=== PATIENT | male | born 1965 | race Caucasian/White ===

== ENCOUNTER 2024-07-02 11:29 | Outpatient (CLI) | payer OTHER, SELFPAY ==
--- NOTE | ~2024-07-02 | XR_ITS ---
Right Shoulder Technique: AP and scapular Y views were obtained. Clinical History: Pain Findings: No fracture or dislocation is seen. Osseous alignment is anatomic. The glenohumeral and acr omioclavicular joint spaces are preserved. Soft tissues are unremarkable. Impression: Unremarkable right shoulder radiographs. Reviewed, dictated and finalized at [facility]. Impression: Unremarkable right shoulder radiographs.
--- OUTSIDE RECORDS SUMMARY | 2024-07-03 12:49 | XMS_ITS ---
Author Organization [facility] Address [address] [place], [place] [address] Care Team Providers Care Manager Client Name Role Phone MARISELA DARREN Unavailable [phone] Bonifacio Arellano Unavailable Unavailable Allergies Allergen (clinical drug ingredient) Drug/Non Drug Allergy documented on EMR Reaction Allergy Type Onset Date Status POISON DOMINICK EXTRACT poison dominick extract (uncoded) Unknown Allergy 04/15/2022 active REASON FOR VISIT The patient reports that the combination of the oral steroid and PowerStep inserts got rid of 90% of his pain. He does not have pain during the day, but at night time he can cramp up Medications Medication SIG (Take, Route, Frequency, Duration) Notes Start Date End Date Status methylPREDNISolone 4 MG as directed Orally one pack 024 Active Ciclopirox 8 % 1 application Externally to toenails Once a day. for 30 days Remove medication weekly with rubbing alcohol. one bottle, 6.6mL or similar. 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 I educated the patient on icing and stretching, supportive shoegear, and the use of orthotic devices and bracing. Continue PowerStep inserts. 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 I educated the patient on icing and stretching, supportive shoegear, and the use of orthotic devices and bracing. Continue PowerStep inserts. Recommend stretching daily Next Appt Details Follow Up: prn, Reason: Progress Notes * KAVON DAMONDOB:1965 (58 yo M)Acc No.[id number]:12/22/2023 Patient: KAVON HAM Provider: Uri Antonio DPM :1965 A ge:58 Y S ex:Male Date:12/22/2023 Address:[address] [place] [address] Subjective: * Chief Complaints: * 1 . The patient reports that the combination of the oral steroid and PowerStep inserts got rid of 90% of his pain. He does not have pain during the day, but at night time he can cramp up. * HPI: H PI: Follow Up Visit P atient presents for follow-up visit for left foot pain. Patient prescribed oral steroid and given Powerstep inserts. Patient states these both helped greatly, and his pain is 90% gone. , MA: LB. * ROS: G eneral / Constitutional: Patient denies c hills, fever, weakness, night sweats. M usculoskeletal: Patient denies c hildhood foot problems, weakness. P atient complains of j oint pain. P eripheral Vascular: Patient denies u lceration of feet, cold extremities. ? S kin: Patient denies u lcerations, discoloration. P atient complains of n ail changes, fungal nails. N eurologic: Patient denies b alance difficulty, confusion, difficulty speaking, dizziness. * Medical History: H igh blood pressure. * Surgical History: D enies Past Surgical History. * Hospitalization/Major Diagno stic Procedure: D enies Past Hospitalization. * Family History: N on-Contributory. * Social History: M igrated Social History: M igrated Social History: History of tobacco use : , Smoking Status : Never used tobacco. * Medications: T aking Ciclopirox 8 % Solution 1 application Externally to toenails Once a day. Remove medication weekly with rubbing alcohol., stop date 05/29/2024, Notes to Pharmacist: one bottle, 6.6mL or similar., Taking methylPREDNISolone 4 MG Tablet Therapy Pack as directed Orally , Notes to Pharmacist: one pack, Medication List reviewed and reconciled with the patient * Allergies: p oison dominick extract: Allergy - Onset Date 04/15/2022. Objective: * Vitals: S hoe Size: 9, Wt:195lbs, Wt-k.45 kg, Ht: 69 in, Ht-cm: 175.26 cm, BMI:28.79Index, Body Surface Area: 2.07. * Examination: C onstitutional: Constitutional T he patient is awake, alert, well developed, well groomed and well nourished. D ermatologic: Skin findings: S kin is warm, dry, supple with no breaks in the skin. Nail pathology: t he hallux toenail is thick and discolored / yellow. V ascular: Dorsalis pedis pulse: 2 /4, bilateral. Posterior tibial pulse: 2 /4, bilateral. Capillary refill: l ess than 3 seconds. Edema: N o edema, bilateral. N eurologic: Gross sensation G ross sensation is intact to light touch.? M usculoskeletal: Muscle Strength M uscle strength is 5/5 in regards to dorsiflexion, plantarflexion, inversion, and eversion in bilateral lower extremities. Pain on palpation T here is no pain on palpation, There is no pain with range of motion. Assessment: * Assessment: 1. P lantar fasciitis - M72.2 (Primary) 2 . A nterior tibial syndrome, left leg - M76.812 3 . 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 L eft foot pain - M79.672 Plan: * Treatment: * Immunizations: Immunization record has been reviewed and updated. * Follow Up: p rn * Billing Information: * Visit Code: 27700 Office Visit, Est Pt., Level 3. * Procedure Codes: * Sign off status: Completed true * Provider: Uri Antonio DPM Date: Generated for Ronaldo almeida/Kodi/Lin on: 0 07/03/2024 12:49 PM CDT History and Physical Notes * HPI (History of Present Illness) Category Sub-Category Detail Notes Category Not es HPI Follow Up Visit Patient presents for follow-up visit for left foot pain. Patient prescribed oral steroid and given Powerstep inserts. Patient states these both helped greatly, and his pain is 90% gone. , MA: LB Examination Category Sub-Category Detail Notes Category Not es Dermatologic Skin findings: Skin is warm, dr y, supple with no breaks in the skin Nail pathology: the hallux toenail i s thick and discolored / yellow Neurologic Gross sensation Gross sensation is intact to light touch Vascular Dorsalis pedis pulse: 2/4, bilateral Edema: No edema, bilateral Capillary refill: less than 3 seconds Posterior tibial pulse: 2/4, bilateral Musculoskeletal Muscle Strength Muscle strength is 5/5 in regards to dorsiflexion, plantarflexion, inversion, and eversion in bilateral lower extremities Pain on palpation There is no pain on palpation, There is no pain with range of motion Constitutional Constitutional The patient is a wake, alert, well developed, well groomed and well nourished
--- OUTSIDE RECORDS SUMMARY | 2024-07-03 12:49 | XMS_ITS | Patient Health Record ---
Author Organization [facility] Address [address] [place], [place] [id number] Care Team Providers Care Block Inspector Name Role Phone DARREN ANTONIO Unavailable [phone] Bonifacio Arellano Unavailable Unavailable Allergies Allergen (clinical drug ingredient) Drug/Non Drug Allergy documented on EMR Reaction Allergy Type Onset Date Status POISON DOMINICK EXTRACT poison dominick extract (uncoded) Unknown Allergy 04/15/2022 active Reason For Referral No Information Medications Medication SIG (Take, Route, Frequency, Duration) Notes Start Date End Date Status methylPREDNISolone 4 MG as directed Orally one pack 024 Active Immunizations Vaccine Route Administration Date Status Comme nts Influenza, high dose seasonal Unknown 02/07/2022 Admini stered Influenza, high dose seasonal Unknown 12/01/2023 Refuse d Pneumococcal conjugate PCV 13 Unknown 02/07/2022 Admini stered Pneumococcal conjugate PCV 13 Unknown 12/01/2023 Refuse d Vital Signs Height-cm 175.26 cm 12/22/2023 Weight-kg 88.45 kg 12/22/2023 Height 69 in 12/22/2023 Weight 195 lbs 12/22/2023 BMI 28.79 kg/m2 12/22/2023 Encounters Encounter Location Date Provider Diagnosis [facility] [address] [place], [place] [id number] 12/01/2023 DARREN ANTONIO Anterior tibial syndrome, 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 ; Tinea unguium B35.1 ; Other congenital malformations of lower limb(s), 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 and Left foot pain M79.672 [facility] [address] [place], [place] [id number] 12/22/2023 DARREN ANTONIO Anterior tibial syndrome, 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 I educated the patient on icing and stretching, supportive shoegear, and the use of orthotic devices and bracing. Shoe Recommendation: Advised patient on appropriate shoe gear for protection, healing and good foot health. PowerStep Inserts: The patient was dispensed and fitted with over the counter arch supports. The patient was educated on their use and effect. All questions were answered. 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
--- OUTSIDE RECORDS SUMMARY | 2024-07-03 12:49 | XMS_ITS | Encounter Summary ---
Author Organization [facility] Address [address] [place] [address] Care Team Providers Care Material Damage Appraiser Name Role Phone Unavailable Primary Care Provider Unavailabl e Encounter Details Date Type Department Care Team (Late st Contact Info) Description 10/03/2021 Lab Requisition [facility] [address] [place] [address] Abel Dao MD [address] [place] [address] Social History Tobacco Use Types Packs/Day Years Used Date Smoking Tobacco: Never Assessed Sex and Gender Information Value Date Recorded Sex Assigned at Not on file Legal Sex Male 5:59 AM HOROLOGIST Gender Identity Not on file Sexual Orientation Not on file documented as of this encounter Plan of Treatment Not on file documented as of this encounter Procedures Procedure Name Priority Date/Time Associated Diagnosis Comments DERMATOPATHOLOGY Routine 10/02/2021 3:33 AM CDT documented in this encounter Results * DERMATOPATHOLOGY (10/02/2021 3:33 AM CDT) Case Report Dermatopathology Report Case: [id number] Authorizing Provider: Abel Dao MD Collected: 10/02/2021 03:33 AM Ordering Location: [facility] Received: 10/03/2021 01:46 PM Pathologist: Nadia Strickland MD Specimens: A) - Skin, right mid pretibia B) - Skin, right lateral back 4:01 PM CDT DERMATOPATHOLOGY LABORATORY Final Diagnosis Specimen A. SKIN, right mid pretibia: BENIGN VERRUCOUS KERATOSIS, INFLAMED (L82.1) Specimen B. SKIN, right lateral back: NEUROFIBROMA (D36.10) 2 4:01 PM T DERMATOPATHOLOGY LABORATORY Clinical History A-B: R/O SCC 4:01 PM T DERMATOPATHOLOGY LABORATORY Gross Description Specimen A: Received is one formalin filled container labeled with the patient's name and designated right mid pretibia. The specimen consists of a shave biopsy measuring [id number]. Jar 0. Specimen B: Received is one formalin filled container labeled with the patient's name and designated right lateral back. The specimen consists of a shave biopsy measuring [id number] and another piece of tissue measuring [id number]. Jar 0. 4:01 PM T DERMATOPATHOLOGY LABORATORY Microscopic Description Specimen A. SKIN, right mid pretibia: Sections show hyperkeratosis, papillomatosis, hypergranulosis, and acanthosis. Inflammatory cells are present within the dermis. These histological findings can be seen in a verruca vulgaris or a seborrheic keratosis. Specimen B. SKIN, right lateral back: Sections show a proliferation of spindled and S-shaped cells within the dermis. The stromal collagen is delicate and pale. 2 4:01 PM [facility] DERMATOPATHOLOGY LABORATORY Disclaimer An external and internal positive and negative controls are appropriate for the histochemical, immunohistochemical and immunofluorescence stain(s) in this case (if any), except where stated explicitly. The performance characteristics of the stain(s) cited in this report were developed and its performance characteristic determined by the Dermatopathology Laboratory at [facility], directed by Dr. Francisco Mitchell. These tests need not be, and therefore are not, approved by the [place] Food and Drug Administration. The tests are used for clinical purposes. Billing Codes Specimen Charges Stain Charges 66190 36130 1 1 2 4:01 PM CDT DERMATOPATHOLOGY LABORATORY Embedded Images 2 4:01 PM CDT DERMATOPATHOLOGY LABORATORY Pathology/Cytology TISSUE SPECIMEN FROM SKIN / Unknown 10/02/2021 3:33 AM CDT 10/03/2021 1:46 PM CDT Miscellaneous samples (specimen) TISSUE SPECIMEN FROM SKIN / Unknown 10/02/2021 3:33 AM CDT 10/03/2021 1:46 PM CDT Abel Dao MD LAB - PATHOLOGY/CYTOLOGY ORD ERABLES Final Result DERMATOPATHOLOGY LABORATORY [facility] - Department of Dermatology [facility] [address] [place] [address], [address] [phone] documented in this encounter Visit Diagnoses Not on filedocumented in this encounter
--- OUTSIDE RECORDS SUMMARY | 2024-07-03 12:49 | XMS_ITS | Data Portability ---
Author Organization [facility] [employer], Main Office Address [address] [place] [address] Assessment No assessment recorded. Plan of Treatment Reminders Order Date Submit Date Provider Last Modified By Organization Details Last Modified Time Details Appointments None recorded. Lab lipid panel, serum 2023 024 [facility], [address] [place], [address], 4 16:48:21 CMP, serum or plasma 2023 024 [facility], [address] [place], [address], 4 16:48:22 PSA, serum or plasma 2023 024 [facility], [address] [place], [address], 4 16:48:23 testosteron e, free + total, serum 2023 024 [facility], [address] [place], [address], 4 16:48:23 lipid panel, serum [email or web address] [place] [address] Outpatient Lab, [address] [place], [address], 4 13:11:24 CMP, serum or plasma [email or web address] [place] [address] Outpatient Lab, [address] [place], [address], 4 13:11:24 testosteron e, free + total, serum 2022 023 [email or web address] [facility] Outpatient Lab, [address] [place], [address], 4 13:11:24 lipid panel, serum 2022 023 [facility], [address] [place], [address], 3 07:09:49 CMP, serum or plasma 2022 023 [facility], [address] [place], [address], 3 07:09:49 PSA, serum or plasma 2022 023 [facility], [address] [place], [address], 3 07:09:51 CBC w/ auto diff 2022 023 [facility], [address] [place], [address], 3 07:09:50 Referral None recorded. Procedures None recorded. Surgeries None recorded. Imaging None recorded. Medication Orders cephalexin 500 mg capsule 2023 024 [id number], [id number] , [place], [address], 4 16:44:45 Patient TargetsNo targets recorded. Patient Instructions Encounter Date Encounter Id Patient Instructions Last Modified By Organization Details Last Modified Time 08/28/2022 [id number] Follow-up for hypertension -hyperlipidemia -recurrent pancreatitis clinically doing well at this time. No interval complaints of any abdominal pain or other signs or symptoms of recurrent pancreatitis. Will check a CBC, CMP, lipid and PSA. Continue on current Rx follow-up in six months. [email or web address] Not available 08/28/2022 16:58:22 02/26/2023 [id number] Hypertension -hyperlipidemia -history of chronic pancreatitis -testicular hypofunction obesity class one. Check blood work in the form hemoglobin A1c, microalbumin, lipid panel. Continue on current medications follow-up in six months. Portions of the record may have been created with voice recognition software. Occasional wrong-word or s ound-a-like substitutions may have occurred due to the inherent limitations of voice recognition software. Read the chart carefully and recognize, using context, where substitutions have occurred. [email or web address] Not available 02/26/2023 16:55:19 08/27/2023 [id number] Follow-up hypertension, hyperlipidemia, chronic pancreatitis and testicular hypofunction all clinically stable. Will check a lipid panel, CMP, PSA and testosterone. Continue on current Rx follow-up in six months Next Appointment: 6 Months Approximate Date: 02/23/2024 Portions of the record may have been created with voice recognition software. Occasional wrong-word or s ound-a-like substitutions may have occurred due to the inherent limitations of voice recognition software. Read the chart carefully and recognize, using context, where substitutions have occurred. Not available 08/27/2023 16:57:10 Reason for Referral None Reported. Results Created Date Observation Date Name Description Value Unit Range Abnormal Flag Note LastModifiedBy Organization Detail LastModifiedTime 02/07/20 22 02/06/2022 COVID /FLU/ RSV PCR PANEL sars-cov-2 RNA(covid19) ,RT-PCR positi ve abnormal Not Available [facility] (Lab) [address] [place], [address], 02/06/2022 13:20:49 02/07/20 22 02/06/2022 COVID /FLU/ RSV PCR PANEL influenza A RNA, RT-PCR positi ve abnormal Not Available [facility] (Lab) [address] [place], [address], 02/06/2022 13:20:49 02/07/20 22 02/06/2022 COVID /FLU/ RSV PCR PANEL influenza B RNA, RT-PCR negati ve Not Available [facility] (Lab) [address] [place], [address], 02/06/2022 13:20:49 02/07/20 22 02/06/2022 COVID /FLU/ RSV PCR PANEL RSV/resp.syn ctial virus,RT-PCR negati ve abnormal Not Available [facility] (Lab) [address], [place], [address], 02/06/2022 13:20:49 03/16/19 23 03/17/2022 COMPR EHENS AUDREY METAB OLIC PANEL glucose 109 mg/dL 65-99 high Fasti ng refer ence inter ryanne For someo ne witho ut known diabe jayro, a gluco se value betwe en 100 and 125 mg/dL is consi stent with predi abete s and shoul d be confi rmed with a follo w-up test. Not Available [address], [address], 03/17/2022 08:23:24 03/16/19 23 03/17/2022 COMPR EHENS AUDREY METAB OLIC PANEL urea nitrogen (BUN) 15 mg/dL 7-25 normal Not Available [address], [address], 03/17/2022 08:23:24 03/16/19 23 03/17/2022 COMPR EHENS AUDREY METAB OLIC PANEL creatinine 0.90 mg/dL 0.70-1 .30 normal Not Available [facility] [email or web address] Diagnostics [address], [address], 03/17/2022 08:23:24 03/16/19 23 03/17/2022 COMPR EHENS AUDREY METAB OLIC PANEL eGFR 100 mL/mi n/1.7 3m2 > or = 60 normal The eGFR is based on the CKD-E PI 2020 equat ion. To calcu late the new eGFR from a previ ous Creat inine or Cysta tin C resul t, go to https ://zaire chi.parvez villegas/argentina lara s/ kdoqi /gfr% 5Fcal culat or Not Available [address] [address] [place], [address], 03/17/2022 08:23:24 03/16/19 23 03/17/2022 COMPR EHENS AUDREY METAB OLIC PANEL BUN/creatini ne ratio not applic able (calc ) 6-22 Not Available [address], [address], 03/17/2022 08:23:24 03/16/19 23 03/17/2022 COMPR EHENS AUDREY METAB OLIC PANEL sodium 139 mmol/ L 135-14 6 normal Not Available [address], [address], 03/17/2022 08:23:24 03/16/19 23 03/17/2022 COMPR EHENS AUDREY METAB OLIC PANEL potassium 4.3 mmol/ L 3.5-5. 3 normal Not Available [address], [address], 03/17/2022 08:23:24 03/16/19 23 03/17/2022 COMPR EHENS AUDREY METAB OLIC PANEL chloride 106 mmol/ L 98-110 normal Not Available [address], [address], 03/17/2022 08:23:24 03/16/19 23 03/17/2022 COMPR EHENS AUDREY METAB OLIC PANEL carbon dioxide 26 mmol/ L 20-32 normal Not Available [facility] [address], [address], 03/17/2022 08:23:24 03/16/19 23 03/17/2022 COMPR EHENS AUDREY METAB OLIC PANEL calcium 9.5 mg/dL 8.6-10 .3 normal Not Available [address], [address], 03/17/2022 08:23:24 03/16/19 23 03/17/2022 COMPR EHENS AUDREY METAB OLIC PANEL protein, total 6.8 g/dL 6.1-8. 1 normal Not Available [address], [address], 03/17/2022 08:23:24 03/16/19 23 03/17/2022 COMPR EHENS AUDREY METAB OLIC PANEL albumin 4.6 g/dL 3.6-5. 1 normal Not Available [address], [address], 03/17/2022 08:23:24 03/16/19 23 03/17/2022 COMPR EHENS AUDREY METAB OLIC PANEL globulin 2.2 g/dL_ (calc ) 1.9-3. 7 normal Not Available [address], [address], 03/17/2022 08:23:24 03/16/19 23 03/17/2022 COMPR EHENS AUDREY METAB OLIC PANEL albumin/glob ulin ratio 2.1 (calc ) 1.0-2. 5 normal Not Available [address], [address], 03/17/2022 08:23:24 03/16/19 23 03/17/2022 COMPR EHENS AUDREY METAB OLIC PANEL bilirubin, total 0.5 mg/dL 0.2-1. 2 normal Not Available [address], [address], 03/17/2022 08:23:24 03/16/19 23 03/17/2022 COMPR EHENS AUDREY METAB OLIC PANEL alkaline phosphatase 59 U/L 35-144 normal Not Available [address], [address], 03/17/2022 08:23:24 03/16/19 23 03/17/2022 COMPR EHENS AUDREY METAB OLIC PANEL AST 22 U/L 10-35 normal Not Available [address] [address] [place], [address], 03/17/2022 08:23:24 03/16/19 23 03/17/2022 COMPR EHENS AUDREY METAB OLIC PANEL ALT 24 U/L 9-46 normal Not Available [address], [address], 03/17/2022 08:23:24 03/16/19 23 03/17/2022 LIPID PANEL , STAND TIFFANY triglyceride s 59 mg/dL <150 normal Not Available [address], [address], 03/17/2022 08:23:23 03/16/19 23 03/17/2022 LIPID PANEL , STAND TIFFANY cholesterol, total 113 mg/dL <200 normal Not Available [address], [address], 03/17/2022 08:23:23 03/16/19 23 03/17/2022 LIPID PANEL , STAND TIFFANY HDL cholesterol 49 mg/dL > or = 40 normal Not Available [address], [address], 03/17/2022 08:23:23 03/16/19 23 03/17/2022 LIPID PANEL , STAND TIFFANY LDL-choleste rol 50 mg/dL _(zo c) normal Refer ence range : <100 Sherri able range <100 mg/dL for prima ry preve ntion ; <70 mg/dL for patie nts with CHD or diabe tic patie nts with > or = 2 CHD risk facto rs. LDL-C is now calcu lated using the Maritza n-Hop kins calcu mj n, which is a valid ated novel metho d jensen sullivan r accur acy than the Fried ayaz equat ion in the estim ation of LDL-C . Maritza holloway SS et al. DANILO. 2013; 310(1 8): 2061- 2068 (http ://ed ucati on.Krissy boss [employer]. com/f aq/FA Q164) Not Available [address] [address] , [place], [address], 03/17/2022 08:23:23 03/16/19 23 03/17/2022 LIPID PANEL , STAND TIFFANY chol/HDLC ratio 2.3 (calc ) <5.0 normal Not Available [address], [place], [address], 03/17/2022 08:23:23 03/16/19 23 03/17/2022 LIPID PANEL , STAND TIFFANY non HDL cholesterol 64 mg/dL _(zo c) <130 normal For patie nts with diabe jayro plus 1 major ASCVD risk facto r, treat ing to a non-H DL-C goal of <100 mg/dL (LDL- C of <70 mg/dL ) is consi moses a souleymane nolasco c optio n. Not Available [address], [place], [address], 03/17/2022 08:23:23 09/05/19 23 09/05/2022 LIPID PANEL , STAND TIFFANY cholesterol, total 130 mg/dL <200 normal Not Available [address], [place], [address], 09/05/2022 07:09:48 09/05/19 23 09/05/2022 LIPID PANEL , STAND TIFFANY HDL cholesterol 49 mg/dL > or = 40 normal Not Available [address] [address] [place], [address], 09/05/2022 07:09:48 09/05/19 23 09/05/2022 LIPID PANEL , STAND TIFFANY triglyceride s 146 mg/dL <150 normal Not Available [address] [address] [place], [address], 09/05/2022 07:09:48 09/05/19 09/05/2022 LIPID PANEL , STAND TIFFANY LDL-choleste rol 58 mg/dL _(zo c) normal Refer ence range : <100 Sherri able range <100 mg/dL for prima ry preve ntion ; <70 mg/dL for patie nts with CHD or diabe tic patie nts with > or = 2 CHD risk facto rs. LDL-C is now calcu lated using the Maritza n-Hop kins calcu mj n, which is a valid ated novel metho d provi ding laurie r accur acy than the Fried ayaz equat ion in the estim ation of LDL-C . Maritza n SS et al. DANILO. 2013; 310(1 9): 2061- 2068 (http ://ed ucati onBrightTALK. [employer]/f aq/FA Q164) Not Available [facility] [address] [address] [address], [place], [address], 09/05/2022 07:09:48 09/05/1909/05/2022 LIPID PANEL , STAND TIFFANY chol/HDLC ratio 2.7 (calc ) <5.0 normal Not Available [facility] [address] [address] [address] , [place], [address], 09/05/2022 07:09:48 09/05/1909/05/2022 LIPID PANEL , STAND TIFFANY non HDL cholesterol 81 mg/dL _(zo c) <130 normal For patie nts with diabe jayro plus 1 major ASCVD risk facto r, treat ing to a non-H DL-C goal of <100 mg/dL (LDL- C of <70 mg/dL ) is consi dered a thera peuti c optio n. Not Available [facility] [address] [address], [place], [address], 09/05/2022 07:09:48 09/05/1909/05/2022 COMPR EHENS AUDREY METAB OLIC PANEL glucose 99 mg/dL 65-99 normal Fasti ng refer ence inter ryanne Not Available [facility] [address] [address] [place], [address], 09/05/2022 07:09:49 09/05/19 23 09/05/2022 COMPR EHENS AUDREY METAB OLIC PANEL urea nitrogen (BUN) 14 mg/dL 7-25 normal Not Available [address], [address], 09/05/2022 07:09:49 09/05/19 23 09/05/2022 COMPR EHENS AUDREY METAB OLIC PANEL creatinine 0.81 mg/dL 0.70-1 .30 normal Not Available [address], [address], 09/05/2022 07:09:49 09/05/19 23 09/05/2022 COMPR EHENS AUDREY METAB OLIC PANEL eGFR 103 mL/mi n/1.7 3m2 > or = 60 normal The eGFR is based on the CKD-E PI 2020 equat ion. To calcu late the new eGFR from a previ ous Creat inine or Cysta tin C resul t, go to https ://zaire guerrero.yuly chi.o nelly/argentina lara s/ kdoqi /gfr% 5Fcal culat or Not Available [address], [address], 09/05/2022 07:09:49 09/05/19 23 09/05/2022 COMPR EHENS AUDREY METAB OLIC PANEL BUN/creatini ne ratio NOT APPLIC ABLE (calc ) 6-22 Not Available [address], [address], 09/05/2022 07:09:49 09/05/19 23 09/05/2022 COMPR EHENS AUDREY METAB OLIC PANEL sodium 138 mmol/ L 135-14 6 normal Not Available [address], [address], 09/05/2022 07:09:49 09/05/19 23 09/05/2022 COMPR EHENS AUDREY METAB OLIC PANEL potassium 4.1 mmol/ L 3.5-5. 3 normal Not Available [address], [address], 09/05/2022 07:09:49 09/05/19 23 09/05/2022 COMPR EHENS AUDREY METAB OLIC PANEL chloride 104 mmol/ L 98-110 normal Not Available [address], [address], 09/05/2022 07:09:49 09/05/19 23 09/05/2022 COMPR EHENS AUDREY METAB OLIC PANEL carbon dioxide 23 mmol/ L 20-32 normal Not Available [address], [address], 09/05/2022 07:09:49 09/05/19 23 09/05/2022 COMPR EHENS AUDREY METAB OLIC PANEL calcium 9.4 mg/dL 8.6-10 .3 normal Not Available [address], [address], 09/05/2022 07:09:49 09/05/1909/05/2022 COMPR EHENS AUDREY METAB OLIC PANEL protein, total 6.6 g/dL 6.1-8. 1 normal Not Available [address], [address], 09/05/2022 07:09:49 09/05/19 23 09/05/2022 COMPR EHENS AUDREY METAB OLIC PANEL albumin 4.4 g/dL 3.6-5. 1 normal Not Available [address], [address], 09/05/2022 07:09:49 09/05/19 23 09/05/2022 COMPR EHENS AUDREY METAB OLIC PANEL globulin 2.2 g/dL_ (calc ) 1.9-3. 7 normal Not Available [address], [address], 09/05/2022 07:09:49 09/05/19 23 09/05/2022 COMPR EHENS AUDREY METAB OLIC PANEL albumin/glob ulin ratio 2.0 (calc ) 1.0-2. 5 normal Not Available [address], [address], 09/05/2022 07:09:49 09/05/19 23 09/05/2022 COMPR EHENS AUDREY METAB OLIC PANEL bilirubin, total 0.6 mg/dL 0.2-1. 2 normal Not Available [address], [address], 09/05/2022 07:09:49 09/05/19 23 09/05/2022 COMPR EHENS AUDREY METAB OLIC PANEL alkaline phosphatase 58 U/L 35-144 normal Not Available [address], [address], 09/05/2022 07:09:49 09/05/19 23 09/05/2022 COMPR EHENS AUDREY METAB OLIC PANEL AST 24 U/L 10-35 normal Not Available [address], [address], 09/05/2022 07:09:49 09/05/19 23 09/05/2022 COMPR EHENS AUDREY METAB OLIC PANEL ALT 28 U/L 9-46 normal Not Available [address], [address], 09/05/2022 07:09:49 09/05/19 23 09/05/2022 CBC (INCL UDES DIFF/ PLT) white blood cell count 6.5 thous and/u L 3.8-10 .8 normal Not Available [address], [address], 09/05/2022 07:09:50 09/05/19 23 09/05/2022 CBC (INCL UDES DIFF/ PLT) red blood cell count 5.32 vipul on/uL 4.20-5 .80 normal Not Available [address], [address], 09/05/2022 07:09:50 09/05/19 23 09/05/2022 CBC (INCL UDES DIFF/ PLT) hemoglobin 15.3 g/dL 13.2-1 7.1 normal Not Available [address], [address], 09/05/2022 07:09:50 09/05/19 23 09/05/2022 CBC (INCL UDES DIFF/ PLT) hematocrit 46.2 % 38.5-5 0.0 normal Not Available [address], [address], 09/05/2022 07:09:50 09/05/19 23 09/05/2022 CBC (INCL UDES DIFF/ PLT) MCV 86.8 fL 80.0-1 00.0 normal Not Available [address], [address], 09/05/2022 07:09:50 09/05/19 23 09/05/2022 CBC (INCL UDES DIFF/ PLT) MCH 28.8 pg 27.0-3 3.0 normal Not Available [address], [address], 09/05/2022 07:09:50 09/05/19 23 09/05/2022 CBC (INCL UDES DIFF/ PLT) MCHC 33.1 g/dL 32.0-3 6.0 normal Not Available [address], [address], 09/05/2022 07:09:50 09/05/19 23 09/05/2022 CBC (INCL UDES DIFF/ PLT) RDW 13.7 % 11.0-1 5.0 normal Not Available [address], [address], 09/05/2022 07:09:50 09/05/19 23 09/05/2022 CBC (INCL UDES DIFF/ PLT) platelet count 231 thous and/u L 140-40 0 normal Not Available [address], [address], 09/05/2022 07:09:50 09/05/19 23 09/05/2022 CBC (INCL UDES DIFF/ PLT) MPV 10.5 fL 7.5-12 .5 normal Not Available [address], [address], 09/05/2022 07:09:50 09/05/19 23 09/05/2022 CBC (INCL UDES DIFF/ PLT) absolute neutrophils 3426 cells /uL 1500-7 800 normal Not Available [address], [address], 09/05/2022 07:09:50 09/05/19 23 09/05/2022 CBC (INCL UDES DIFF/ PLT) absolute lymphocytes 2295 cells /uL 850-39 00 normal Not Available [address], [address], 09/05/2022 07:09:50 09/05/19 23 09/05/2022 CBC (INCL UDES DIFF/ PLT) absolute monocytes 611 cells /uL 200-95 0 normal Not Available [address], [address], 09/05/2022 07:09:50 09/05/19 23 09/05/2022 CBC (INCL UDES DIFF/ PLT) absolute eosinophils 137 cells /uL 15-500 normal Not Available [address], [address], 09/05/2022 07:09:50 09/05/19 23 09/05/2022 CBC (INCL UDES DIFF/ PLT) absolute basophils 33 cells /uL 0-200 normal Not Available [address], [address], 09/05/2022 07:09:50 09/05/19 23 09/05/2022 CBC (INCL UDES DIFF/ PLT) neutrophils 52.7 % normal Not Available [address], [address], 09/05/2022 07:09:50 09/05/19 23 09/05/2022 CBC (INCL UDES DIFF/ PLT) lymphocytes 35.3 % normal Not Available [facility] [email or web address] Diagnostics [address], [address], 09/05/2022 07:09:50 09/05/19 23 09/05/2022 CBC (INCL UDES DIFF/ PLT) monocytes 9.4 % normal Not Available [address], [address], 09/05/2022 07:09:50 09/05/19 23 09/05/2022 CBC (INCL UDES DIFF/ PLT) eosinophils 2.1 % normal Not Available [address], [address], 09/05/2022 07:09:50 09/05/19 23 09/05/2022 CBC (INCL UDES DIFF/ PLT) basophils 0.5 % normal Not Available [address], [address], 09/05/2022 07:09:50 09/05/19 23 09/05/2022 PSA, TOTAL PSA, total 1.11 NG/mL < or = 4.00 normal The total PSA value from this assay syste m is stand ardiz ed again st the WHO stand tiffany. The test resul t will be appro ximat vinicio 20% lower when gerson red to the equim olar- stand ardiz ed total PSA ([place] man Coult er). Gerson rison of seria l PSA resul ts shoul d be inter prete d with this fact in mind. This test was perfo rmed using the Sieme ns chemi lumin escen t metho d. Value s obtai marya from diffe rent assay metho ds canno t be used inter mariano eably . PSA level s, regar dless of value , shoul d not be inter prete d as absol emmonak evide nce of the prese nce or absen ce of disea se. Not Available [facility] [address] [address] [place], [address], 09/05/2022 07:09:51 03/18/19 24 03/22/2023 LIPID PANEL , STAND TIFFANY cholesterol, total 146 mg/dL <200 normal Not Available [facility] [address] [address] [place], [address], 03/22/2023 10:55:17 03/18/19 24 03/22/2023 LIPID PANEL , STAND TIFFANY HDL cholesterol 51 mg/dL > or = 40 normal Not Available [facility] [address] [address] [place], [address], 03/22/2023 10:55:17 03/18/19 24 03/22/2023 LIPID PANEL , STAND TIFFANY triglyceride s 141 mg/dL <150 normal Not Available [facility] [address] [address] [place], [address], 03/22/2023 10:55:17 03/18/19 24 03/22/2023 LIPID PANEL , STAND TIFFANY LDL-choleste rol 73 mg/dL _(zo c) normal Refer ence range : <100 Sherri able range <100 mg/dL for prima ry preve ntion ; <70 mg/dL for patie nts with CHD or diabe tic patie nts with > or = 2 CHD risk facto rs. LDL-C is now calcu lated using the [facility]-Hop kins calcu mj n, which is a valid ated novel metho d provi ding laurie r accur acy than the Fried ayaz equat ion in the estim ation of LDL-C . Maritza n SS et al. DNAILO. 2013; 310(1 9): 2061- 2068 (http ://ed ucati on.[employer] Justin [employer]. com/f aq/FA Q164) Not Available [address] [address] [place], [address], 03/22/2023 10:55:17 03/18/19 24 03/22/2023 LIPID PANEL , STAND TIFFANY chol/HDLC ratio 2.9 (calc ) <5.0 normal Not Available [address] [address] [facility] [place], [address], 03/22/2023 10:55:17 03/18/19 24 03/22/2023 LIPID PANEL , STAND TIFFANY non HDL cholesterol 95 mg/dL _(zo c) <130 normal For patie nts with diabe jayro plus 1 major ASCVD risk facto r, treat ing to a non-H DL-C goal of <100 mg/dL (LDL- C of <70 mg/dL ) is consi dered a thera peuti c optio n. Not Available [address], [address], 03/22/2023 10:55:17 03/18/19 24 03/22/2023 COMPR EHENS AUDREY METAB OLIC PANEL glucose 108 mg/dL 65-99 high Fasti ng refer ence inter ryanne For someo ne witho ut known diabe jayro, a gluco se value betwe en 100 and 125 mg/dL is consi stent with predi abete s and shoul d be confi rmed with a follo w-up test. Not Available [address] [address] [place], [address], 03/22/2023 10:55:18 03/18/19 24 03/22/2023 COMPR EHENS AUDREY METAB OLIC PANEL urea nitrogen (BUN) 20 mg/dL 7-25 normal Not Available [facility] [address] [place], [address], 03/22/2023 10:55:18 03/18/19 24 03/22/2023 COMPR EHENS AUDREY METAB OLIC PANEL creatinine 1.10 mg/dL 0.70-1 .30 normal Not Available [address] [address] [place], [address], 03/22/2023 10:55:18 03/18/19 24 03/22/2023 COMPR EHENS AUDREY METAB OLIC PANEL eGFR 78 mL/mi n/1.7 3m2 > or = 60 normal Not Available [address] [address] [place], [address], 03/22/2023 10:55:18 03/18/19 24 03/22/2023 COMPR EHENS AUDREY METAB OLIC PANEL BUN/creatini ne ratio SEE NOTE: (calc ) 6-22 Not Repor myriam: BUN and Creat inine are withi n refer ence range . Not Available [address] [address] [place], [address], 03/22/2023 10:55:18 03/18/19 24 03/22/2023 COMPR EHENS AUDREY METAB OLIC PANEL sodium 140 mmol/ L 135-14 6 normal Not Available [address] [address] [place], [address], 03/22/2023 10:55:18 03/18/19 24 03/22/2023 COMPR EHENS AUDREY METAB OLIC PANEL potassium 4.0 mmol/ L 3.5-5. 3 normal Not Available [facility] [address] [address] [place], [address], 03/22/2023 10:55:18 03/18/19 24 03/22/2023 COMPR EHENS AUDREY METAB OLIC PANEL chloride 106 mmol/ L 98-110 normal Not Available [facility] [address] [address] [place], [address], 03/22/2023 10:55:18 03/18/19 24 03/22/2023 COMPR EHENS AUDREY METAB OLIC PANEL carbon dioxide 26 mmol/ L 20-32 normal Not Available [address], [address], 03/22/2023 10:55:18 03/18/19 24 03/22/2023 COMPR EHENS AUDREY METAB OLIC PANEL calcium 9.7 mg/dL 8.6-10 .3 normal Not Available [address], [address], 03/22/2023 10:55:18 03/18/19 24 03/22/2023 COMPR EHENS AUDREY METAB OLIC PANEL protein, total 6.8 g/dL 6.1-8. 1 normal Not Available [address], [address], 03/22/2023 10:55:18 03/18/19 24 03/22/2023 COMPR EHENS AUDREY METAB OLIC PANEL albumin 4.6 g/dL 3.6-5. 1 normal Not Available [address], [address], 03/22/2023 10:55:18 03/18/19 24 03/22/2023 COMPR EHENS AUDREY METAB OLIC PANEL globulin 2.2 g/dL_ (calc ) 1.9-3. 7 normal Not Available [address], [address], 03/22/2023 10:55:18 03/18/19 24 03/22/2023 COMPR EHENS AUDREY METAB OLIC PANEL albumin/glob ulin ratio 2.1 (calc ) 1.0-2. 5 normal Not Available [address], [address], 03/22/2023 10:55:18 03/18/19 24 03/22/2023 COMPR EHENS AUDREY METAB OLIC PANEL bilirubin, total 0.5 mg/dL 0.2-1. 2 normal Not Available [address] [address] [place], [address], 03/22/2023 10:55:18 03/18/19 24 03/22/2023 COMPR EHENS AUDREY METAB OLIC PANEL alkaline phosphatase 80 U/L 35-144 normal Not Available [facility] [address] [address] [place], [address], 03/22/2023 10:55:18 03/18/19 24 03/22/2023 COMPR EHENS AUDREY METAB OLIC PANEL AST 23 U/L 10-35 normal Not Available [address] [address] [place], [address], 03/22/2023 10:55:18 03/18/19 24 03/22/2023 COMPR EHENS AUDREY METAB OLIC PANEL ALT 24 U/L 9-46 normal Not Available [address] [address] [place], [address], 03/22/2023 10:55:18 03/18/19 24 03/22/2023 TESTO STERO NE, FREE (DIAL YSIS) AND TOTAL ,MS testosterone , total, MS 474 NG/dL 250-11 00 For addit ional infor loi barney e refer to https ://ed [email or web address] on.qu justin [email or web address] com/f aq/FA Q165 (This link is being provi ded for infor matsoraya nal/e ducat ional purpo ses only. ) (Note ) This test was devel oped and its elisa tical perfo rmanc e karin cteri stics have been deter mined by [employer]. It has not been clear ed or appro rosita by the FDA. This assay has been valid ated pursu ant to the CLIA regul ation s and is used for clini zo purpo ses. Not Available [facility] [address] [address] [place], [address], 03/22/2023 10:55:19 03/18/19 24 03/22/2023 TESTO STERO NE, FREE (DIAL YSIS) AND TOTAL ,MS testosterone , free 58.8 pg/mL 35.0-1 55.0 (Note ) This test was devel oped and its elisa tical perfo rmanc e karin cteri stics have been deter mined by [employer]. It has not been clear ed or appro rosita by the FDA. This assay has been valid ated pursu ant to the CLIA regul ation s and is used for clini zo purpo ses. MDF med fusio n [address] [facility] [address] [place] [address] [phone] Curt triplett MD Not Available [facility] [address] [place] [address] [place], [address], 03/22/2023 10:55:19 08/30/19 24 09/02/2023 LIPID PANEL , STAND TIFFANY cholesterol, total 122 mg/dL <200 normal Not Available [facility] [address] [place] [address] [place], [address], 09/02/2023 16:48:21 08/30/19 24 09/02/2023 LIPID PANEL , STAND TIFFANY HDL cholesterol 56 mg/dL > or = 40 normal Not Available [facility] [address] [place] [address] [place], [address], 09/02/2023 16:48:21 08/30/19 24 09/02/2023 LIPID PANEL , STAND TIFFANY triglyceride s 62 mg/dL <150 normal Not Available [facility] [address] [place] [address] [place], [address], 09/02/2023 16:48:21 08/30/19 24 09/02/2023 LIPID PANEL , STAND TIFFANY LDL-choleste rol 52 mg/dL _(zo c) normal Refer ence range : <100 Sherri able range <100 mg/dL for prima ry preve ntion ; <70 mg/dL for patie nts with CHD or diabe tic patie nts with > or = 2 CHD risk facto rs. LDL-C is now calcu lated using the [facility] kins marlyn holloway, which is a valid ated novel romaine villegas accur acy than the Fried ayaz pattonat ion in the estim ation of LDL-C . Maritza holloway SS et al. DANILO. 2013; 310(1 9): 2061- 2068 (http ://ed ucati on.Qu estDi [employer]. com/f aq/FA Q164) Not Available [facility] [address] [place], [address], 09/02/2023 16:48:21 08/30/19 24 09/02/2023 LIPID PANEL , STAND TIFFANY chol/HDLC ratio 2.2 (calc ) <5.0 normal Not Available [facility] [address] [address] [place], [address], 09/02/2023 16:48:21 08/30/19 24 09/02/2023 LIPID PANEL , STAND TIFFANY non HDL cholesterol 66 mg/dL _(zo c) <130 normal For patie nts with diabe jayro plus 1 major ASCVD risk facto r, treat ing to a non-H DL-C goal of <100 mg/dL (LDL- C of <70 mg/dL ) is consi dered a thera peuti c optio n. Not Available [facility] [address] [address], [place], [address], 09/02/2023 16:48:21 08/30/1909/02/2023 COMPR EHENS AUDREY METAB OLIC PANEL glucose 115 mg/dL 65-99 high Fasti ng refer ence inter ryanne For someo ne witho ut known diabe jayro, a gluco se value betwe en 100 and 125 mg/dL is consi stent with predi abete s and shoul d be confi rmed with a follo w-up test. Not Available [facility] [address] [place], [address], 09/02/2023 16:48:22 08/30/19 24 09/02/2023 COMPR EHENS AUDREY METAB OLIC PANEL urea nitrogen (BUN) 17 mg/dL 7-25 normal Not Available [address], [address], 09/02/2023 16:48:22 08/30/19 24 09/02/2023 COMPR EHENS AUDREY METAB OLIC PANEL creatinine 0.74 mg/dL 0.70-1 .30 normal Not Available [address] [place], [address], 09/02/2023 16:48:22 08/30/19 24 09/02/2023 COMPR EHENS AUDREY METAB OLIC PANEL eGFR 105 mL/mi n/1.7 3m2 > or = 60 normal Not Available [address], [address], 09/02/2023 16:48:22 08/30/19 24 09/02/2023 COMPR EHENS AUDREY METAB OLIC PANEL BUN/creatini ne ratio SEE NOTE: (calc ) 6-22 Not Repor myriam: BUN and Creat inine are withi n refer ence range . Not Available [address], [address], 09/02/2023 16:48:22 08/30/19 24 09/02/2023 COMPR EHENS AUDREY METAB OLIC PANEL sodium 138 mmol/ L 135-14 6 normal Not Available [address] [address] [place], [address], 09/02/2023 16:48:22 08/30/19 24 09/02/2023 COMPR EHENS AUDREY METAB OLIC PANEL potassium 3.6 mmol/ L 3.5-5. 3 normal Not Available [address], [address], 09/02/2023 16:48:22 08/30/19 24 09/02/2023 COMPR EHENS AUDREY METAB OLIC PANEL chloride 105 mmol/ L 98-110 normal Not Available [address], [address], 09/02/2023 16:48:22 08/30/19 24 09/02/2023 COMPR EHENS ADUREY METAB OLIC PANEL carbon dioxide 24 mmol/ L 20-32 normal Not Available [address], [address], 09/02/2023 16:48:22 08/30/19 24 09/02/2023 COMPR EHENS AUDREY METAB OLIC PANEL calcium 9.2 mg/dL 8.6-10 .3 normal Not Available [address], [address], 09/02/2023 16:48:22 08/30/19 24 09/02/2023 COMPR EHENS AUDREY METAB OLIC PANEL protein, total 6.6 g/dL 6.1-8. 1 normal Not Available [address], [address], 09/02/2023 16:48:22 08/30/19 24 09/02/2023 COMPR EHENS AUDREY METAB OLIC PANEL albumin 4.6 g/dL 3.6-5. 1 normal Not Available [address], [address], 09/02/2023 16:48:22 08/30/19 24 09/02/2023 COMPR EHENS AUDREY METAB OLIC PANEL globulin 2.0 g/dL_ (calc ) 1.9-3. 7 normal Not Available [address], [address], 09/02/2023 16:48:22 08/30/19 24 09/02/2023 COMPR EHENS AUDREY METAB OLIC PANEL albumin/glob ulin ratio 2.3 (calc ) 1.0-2. 5 normal Not Available [facility] - [address] [address] [place], [address], 09/02/2023 16:48:22 08/30/19 24 09/02/2023 COMPR EHENS AUDREY METAB OLIC PANEL bilirubin, total 0.4 mg/dL 0.2-1. 2 normal Not Available [address], [address], 09/02/2023 16:48:22 08/30/19 24 09/02/2023 COMPR EHENS AUDREY METAB OLIC PANEL alkaline phosphatase 60 U/L 35-144 normal Not Available [facility] [facility] [address], [address], 09/02/2023 16:48:22 08/30/19 24 09/02/2023 COMPR EHENS AUDREY METAB OLIC PANEL AST 20 U/L 10-35 normal Not Available [address], [address], 09/02/2023 16:48:22 08/30/19 24 09/02/2023 COMPR EHENS AUDREY METAB OLIC PANEL ALT 22 U/L 9-46 normal Not Available [address], [address], 09/02/2023 16:48:22 08/30/19 24 09/02/2023 PSA, TOTAL PSA, total 1.05 NG/mL < or = 4.00 normal The total PSA value from this assay syste m is stand ardiz ed again st the WHO stand tiffany. The test resul t will be appro ximat vinicio 20% lower when gerson red to the equim olar- stand ardiz ed total PSA ([place] man Coult er). Gerson rison of seria l PSA resul ts shoul d be inter prete d with this fact in mind. This test was perfo rmed using the Sieme ns chemi lumin escen t metho d. Value s obtai marya from diffe rent assay metho ds canno t be used inter montserrat oseguera . PSA level s, regar dless of value , shoul d not be inter prete d as absol emmonak evide nce of the prese nce or absen ce of disea se. Not Available [address] [address] [place], [address], 09/02/2023 16:48:23 08/30/19 24 09/02/2023 TESTO STERO NE, FREE (DIAL YSIS) AND TOTAL ,MS testosterone , total, MS 470 NG/dL 250-11 00 For addit ional infor matsoraya nloi e refer to https ://ed ucati on.qu [employer]/f aq/FA Q165 (This link is being provi ded for infor matio nal/e ducat ional purpo ses only. ) (Note ) This test was devel oped and its elisa tical perfo rmanc e karin cteri stics have been deter mined by [employer]. It has not been clear ed or appro rosita by the FDA. This assay has been valid ated pursu ant to the CLIA regul ation s and is used for clini zo purpo ses. Not Available [address] [address] [address], [place], [address], 09/02/2023 16:48:23 08/30/19 24 09/02/2023 TESTO STERO NE, FREE (DIAL YSIS) AND TOTAL ,MS testosterone , free 66.1 pg/mL 35.0-1 55.0 (Note ) This test was devel oped and its elisa tical perfo rmanc e karin cteri stics have been deter mined by [employer]. It has not been clear ed or appro rosita by the FDA. This assay has been valid ated pursu ant to the CLIA regul ation s and is used for clini zo purpo ses. ANDRÉS med fusio n [address] [facility] [address] [place] [address] [phone] Lester Martinez MD, PhD Not Available [facility] [address] [address] [address], [place], [address], 09/02/2023 16:48:23 07/03/19 25 07/02/2024 XR, shoul natasha, 2 or more view No observ ation record ed. [address], [place], [address], 07/02/2024 13:30:46 Result Notes None recorded. Problems Name Problem SNOMED Code Status Onset Date Resolution Date Notes Provider Name and Address Organization Details Recorded Time Testicula r hypofunct ion 663121257 Active Not Available [facility] 3 14:50:42 Hyperchol esterolem ia 30807066 Completed Not Available [facility] 3 14:50:42 Acute sinusitis 61002973 Active 2021 Not Available [facility] 3 14:50:42 Chronic pancreati tis 531435769 Active Not Available [facility] 3 14:50:42 Pure hyperchol esterolem ia 970421616 Active Not Available [facility] 3 14:50:42 Sprain of medial collatera l ligament of knee 56124134 Active Not Available [facility] 3 14:50:42 COVID-19 208913655 Active 2021 Not Available [facility] 3 14:50:42 Essential hypertens ion 42567614 Active 2022 Sherry Stoen CMA null, [facility] 3 11:27:47 Disorder of prostate 34514516 Active 2022 Bonifacio Arellano MD [address], [place], [address] , [facility] 3 16:58:16 Obese class I 01119129291 4107 Active 2022 Bonifacio Arellano MD [address], [place], [address] , [facility] 3 16:52:08 Celluliti s of left lower limb 35503217623 656435 Active 2023 Bonifacio Arellano MD [address], [address], [place], [address] , [place] [facility] 4 16:44:30 Pain of right shoulder joint 56292793576 632159 Active 2024 Sherry Stone CMA null, [facility] 5 11:32:10 Problem Notes None recorded. Procedures Surgical History None recorded. Imaging Results Imaging Date Name Status LastModified by Organiz ation Details LastModified Time 07/02/2024 XR, shoulder, 2 or more view completed [address], [place], [address], 07/02/2024 13:30:46 Procedure Notes None recorded. Medical Equipment None Reported. Medications Name Sig Start Date Stop Date Status Note LastModified by Organization Details LastModified Time amoxicillin 500 mg capsule Take 1 capsule 3 times a day by oral route for 10 days. active Not Available Not Available No t Available lisinopril 20 mg-hydrochl orothiazide 12.5 mg tablet TAKE 2 TABLETS BY MOUTH EVERY DAY IN THE MORNING 2024 active Not Available Not Available Not Avai lable azithromyci n 250 mg tablet TAKE 2 TABLETS (500 MG) BY ORAL ROUTE ONCE DAILY FOR 1 DAY THEN 1 TABLET (250 MG) BY ORAL ROUTE ONCE DAILY FOR 4 DAYS 08/13 completed Not Available Not Available Not Available benzonatate 200 mg capsule Take 1 capsule 3 times a day by oral route. 07/13 completed Not Available Not Available Not Available hydrocodone 5 mg-acetamin ophen 325 mg tablet active Not Available Not Available No t Available ondansetron HCl 8 mg tablet 12/10 completed Not Available Not Available Not Available betamethaso ne, augmented 0.05 % topical cream APPLY TWICE DAILY TO LOWER LEG AND LOWER BACK RASH NEEDED. DO NOT APPLY TO FACE OR GENITALS active Not Available Not Available No t Available niacin ER 500 mg tablet,exte nded release 24 hr TAKE 1 TABLET BY MOUTH EVERYDAY AT BEDTIME 2024 active Not Available Not Available Not Avai lable amlodipine 5 mg tablet TAKE 1 TABLET BY MOUTH EVERY DAY 2024 active Not Available Not Available Not Avai lable aspirin 81 mg tablet,yesi yed release Take 1 tablet every day by oral route. 2012 active Not Available Not Available Not Avai lable ciclopirox 8 % topical solution APPLY TO AFFECTED TOENAIL ONCE A DAY. REMOVE WEEKLY WITH RUBBING ALCOHOL active Not Available Not Available No t Available dexamethaso ne 2 mg tablet One Tab TID for 3 days then BID for 3 days Then one daily for 3 days active Not Available Not Available No t Available hydrocodone 7.5 mg-acetamin ophen 325 mg tablet active Not Available Not Available No t Available cephalexin 500 mg capsule Take 1 capsule every 6 hours by oral route. active Not Available Not Available No t Available clotrimazol e-betametha sone 1 %-0.05 % topical cream APPLY TO THE AFFECTED AREA(S) AND THE SURROUNDI NG AREA(S) IN THE MORNING AND EVENING FOR 2 WEEKS active Not Available Not Available No t Available clotrimazol e 1 % topical solution APPLY 1-2 DROPS ONTO THE NAILS ONCE DAILY active Not Available Not Available No t Available testosteron e cypionate 200 mg/mL intramuscul ar oil 12/10 completed Not Available Not Available Not Available methylpredn isolone 4 mg tablets in a dose pack TAKE 6 TABLETS ON DAY 1 DIRECTED ON PACKAGE AND DECREASE BY 1 TAB EACH DAY FOR A TOTAL OF 6 DAYS 02/17 completed Not Available Not Available Not Available ketoconazol e 2 % topical cream APPLY TO AFFECTED AREA TWICE A DAY active Not Available Not Available No t Available fluticasone propionate 50 mcg/actuati on nasal spray,suspe nsion INHALE 2 SPRAYS IN EACH NOSTRIL DAILY 12/10 completed Not Available Not Available Not Available naproxen 500 mg tablet Take 1 tablet twice a day by oral route. active Not Available Not Available No t Available amoxicillin 875 mg-potassiu m clavulanate 125 mg tablet TAKE 1 TABLET BY MOUTH EVERY 12 HOURS 08/26 completed Not Available Not Available Not Available ezetimibe 10 mg tablet TAKE 1 TABLET BY MOUTH EVERY DAY 2024 active Not Available Not Available Not Avai lable rosuvastati n 40 mg tablet TAKE 1 TABLET BY MOUTH EVERY DAY 2024 active Not Available Not Available Not Avai lable Multivitami n 50 Plus tablet Take 1 tablet every day by oral route. 2018 active Not Available Not Available Not Avai lable tadalafil 20 mg tablet Take 1 tablet by mouth once daily 2024 active Not Available Not Available Not Avai lable Cialis 5 mg tablet once daily 12/10 completed Not Available Not Available Not Available sildenafil (pulmonary hypertensio n) 20 mg tablet 1-5 tablets as needed before sexual encounter 01/11 completed Not Available Not Available Not Available vitamin B complex 2015 active Not Available Not Available Not Avai lable multivitami n 01/06 completed Not Available Not Available Not Available krill oil 01/06 completed Not Available Not Available Not Available niacin ER 500 mg tablet,exte nded release once daily 01/01 completed Not Available Not Available Not Available Paxlovid 300 mg (150 mg x 2)-100 mg tablets in a dose pack 08/28 completed Not Available Not Available Not Available Vitals Date Recorded Body mass index (BMI) Body height Oxygen saturation Oxygen saturation in Arterial blood by Pulse oximetry Heart rate Body temperature Body weight Systolic blood pressure Diastolic blood pressure Provider Name and Address Organization Details Last Updated DateTime 2 31.2 kg/m2 175.26 cm 96 % 96 % 90 /min 99 [degF] 66098.9 9 g 140 mm[Hg] 80 mm[Hg] Not Available [facility] 3 14:46:38 Date Recorded Body height Body mass index (BMI) Body weight Heart rate Body temperature Oxygen saturation Oxygen saturation in Arterial blood by Pulse oximetry Systolic blood pressure Diastolic blood pressure Provider Name and Address Organization Details Last Updated DateTime 3 175.26 cm 30.4 kg/m2 16093.0 3 g 81 /min 97 [degF] 97 % 97 % 122 mm[Hg] 80 mm[Hg] Nicole [facility] 3 16:49:57 Date Recorded Body height Body mass index (BMI) Body weight Body temperature Systolic blood pressure Diastolic blood pressure Provider Name and Address Organization Details Last Updated DateTime 3 175.26 cm 31.2 kg/m2 53753.9 9 g 98.9 [degF] 120 mm[Hg] 76 mm[Hg] Keke Higgins LPN [facility] [employer] [facility] 3 16:36:00 Date Recorded Heart rate Provider Name an d Address Organization Details Last Updated DateTime 02/26/2023 78 /min Bonifacio Arellano MD [address] [facility], [address] [address], [place], [address], [facility] [employer] [facility] 02/26/2023 16:51:47 Date Recorded Body height Body weight Heart rate Body temperature Oxygen saturation Oxygen saturation in Arterial blood by Pulse oximetry Systolic blood pressure Diastolic blood pressure Provider Name and Address Organization Details Last Updated DateTime 175.26 cm 00831.0 3 g 80 /min 98.1 [degF] 97 % 97 % 126 mm[Hg] 72 mm[Hg] MERE Martinez [facility] [employer] [facility] 4 16:38:21 Date Recorded Body height Body mass index (BMI) Body weight Heart rate Body temperature Oxygen saturation Oxygen saturation in Arterial blood by Pulse oximetry Provider Name and Address Organization Details Last Updated DateTime 4 175.26 cm 30.1 kg/m2 86880.8 4 g 82 /min 97 [degF] 98 % 98 % MERE Martinez [facility] 4 16:33:32 Date Recorded Systolic blood pressure Diastolic blood pressure Provider Name and Address Organization Details Last Updated DateTime 02/18/2024 122 mm[Hg] 80 mm[Hg] Bonifacio Arellano MD [address] [facility], [facility] [address], [place], [address], [facility] 02/18/2024 16:41:29 Social History Question Answer Notes LastModified by Organizat ion Details LastModified Time In The 14 Days Before Symptom Onset, Have You Had Close Contact With A Laboratory-confirme d COVID-19 While That Case Was Ill? No [id number] Information not available 05/01/2022 In The 14 Days Before Symptom Onset, Have You Had Close Contact With A Person Who Is Under Investigation For COVID-19 While That Person Was Ill? No [id number] Information not available 05/01/2022 Have You Recently Traveled Abroad? No [id number] Information not available 05/01/2022 Sex: Unknown Functional Status None recorded. Mental Status None recorded. Family History Nothing Reported Notes:Mother 60 from CVA and essential hypertension Father and hx of essential hypertension and of Alzheimer's One sister from cerebral neoplasm at a young age. Medical History Condition Response NERVE DISEASE N BLINDNESS N RHEUMATIC FEVER N KIDNEY STONES N BLADDER PROBLEMS N MRSA N OTHER # 1 N POLIO N LUNG DISEASE/DISORDER N RADIATION / CHEMOTHERAPY N COPD N Other # 2 N BLOOD DISEASES N EAR OR HEARING PROBLEMS N MUMPS N BOWEL PROBLEMS N DEPRESSION (INCLUDING POST ) N STROKE/TIA N ULCERS N BENIGN PROSTATIC HYPERPLASIA N MEASLES N MYOCARDIAL INFARCTION N OBESITY N GERD/NAUSEA N ANEURYSM N URINARY/BLADDER/KIDNEY PROBLEMS N CORONARY ARTERY DISEASE (CAD) N ADDICTION CONCERNS N Impotence N ENDOMETRIOSIS N USE OF BLOOD THINNERS N SKIN PROBLEMS N GASTROINTESTINAL DISORDER N PERIPHERAL VASCULAR DISEASE N MUSCLE,JOINT OR BONE PROBLEMS N GASTROINTESTINAL BLEEDING N BLOOD CLOTS N ASTHMA N CATARACTS N ERECTILE DYSFUNCTION N VARICOSITIES N GI PROBLEMS N Low Testosterone N INFERTILITY N AIDS/HIV N CHEMOTHERAPY / RADIATION N LIVER DISEASE N MALE HYPOGONADISM N HYPERTENSION Y Deficiency N TOURETTE'S N ANXIETY DISORDER N BLOOD TRANSFUSION N ANEMIA/BLOOD DISORDER N CHRONIC EAR INFECTIONS N BRONCHITIS N TUBERCULOSIS N GLAUCOMA N FOOT PROBLEM N DIVERTICULITIS N SLEEP APNEA N CHICKENPOX N INFECTIOUS DISEASE N PROSTATE N HEART ARRHYTHMIA N INSOMNIA N HIGH CHOLESTEROL / HYPERLIPIDEMIA Y EYE PROBLEMS N HYPERTHYROIDISM N EDEMA N CHRONIC PAIN SYNDROME N HYPOTHYROIDISM N CONSTIPATION N CAROTID BLOCKAGE N BACK / NECK PROBLEMS N HAVE YOU BEEN HOSPITALIZED OR SEEN IN [facility] IN THE PAST YEAR ? N ATHEROSCLEROSIS N BREAST PROBLEMS N DIALYSIS N ECZEMA N OSTEOPOROSIS N ARTHRITIS N NO SIGNIFICANT PAST MEDICAL HISTORY N APPENDICITIS N DIABETES, TYPE N BAD TEETH N ENT N HEARTBURN / REFLUX N AUTISM SPECTRUM DISORDER (ASD) N HEPATITIS / LIVER DISEASE N GOUT N SLEEP DISORDER N ALZHEIMER'S DISEASE N Brain Problems N DEMENTIA N HERPES N SEIZURES/EPILEPSY N HEADACHES/MIGRAINES N VASCULAR DISEASE N PACEMAKER N Blood Disorder N DIZZINESS N HEART DISEASE/HEART PROBLEMS N KIDNEY DISEASE N MULTIPLE SCLEROSIS N CANCER: SPECIFY N CARDIAC ARRHYTHMIA N ATRIAL FIBRILLATION N Gall Stones N PULMONARY EMBOLISM N AUTOIMMUNE DISEASE N Immunizations Vaccine Type Date Status Note Provider Nam e and Address Organization Details Recorded Time Tdap 4 completed MERE Martinez null, [place] [facility] [place] [facility] 01/05/2024 14:38:14 SARS-COV-2 (COVID-19) vaccine, UNSPECIFIED 1 completed Not Available [facility] 05/01/2022 14:55:00 SARS-COV-2 (COVID-19) vaccine, UNSPECIFIED 1 completed Not Available [facility] 05/01/2022 14:55:00 Influenza, split virus, quadrivalent, preservative 2 completed Not Available [facility] 05/01/2022 14:55:00 Influenza, split virus, quadrivalent, PF 1 completed Not Available [facility] 05/01/2022 14:55:00 Past Encounters Encounter ID Performer Location Encounter Start Date Encounter Closed Date Diagnosis/Indication Diagnosis SNOMED-CT Code Diagnosis ICD10 Code Diagnosis Note [id number] Bonifacio Arellano MD [facility] [address] [address] 08/14/2020 00:00:00 08/14/2020 16:57:18 [id number] Bonifacio Arellano MD [facility] Internal Med [facility] [address] [address] 02/12/2021 00:00:00 02/12/2021 17:22:40 [id number] Bonifacio Arellano MD [facility] Internal Med [facility] [address] [address] 08/13/2021 00:00:00 08/13/2021 16:44:15 [id number] Bonifacio Arellano MD [facility] Internal Med [facility] [address] [address] 02/27/2022 00:00:00 02/27/2022 17:03:51 [id number] Bonifacio Arellano MD [facility] Internal Med [facility] [place] [address] [address] 08/28/2022 16:32:55 08/28/2022 17:11:43 Essential hypertension 25971452 I10 Pure hypercholesterolemia 543780466 E78.00 Chronic pancreatitis 235 915999 K86.1 Disorder of prostate 302 00438 N42.9 [id number] Bonifacio Arellano MD [facility] Internal Med [facility] [place] [address] [address] 02/26/2023 16:30:08 02/26/2023 16:58:18 Essential hypertension 87486547 I10 Pure hypercholesterolemia 304021727 E78.00 Chronic pancreatitis 235 447765 K86.1 Testicular hypofunction 693134044 E29.1 Obese class I 5232455951 77741 E66.9 [id number] Bonifacio Arellano MD [facility] Internal Med [facility] [place] [address] [address] 08/27/2023 16:30:02 08/27/2023 17:03:08 Essential hypertension 33146405 I10 Pure hypercholesterolemia 802361070 E78.00 Chronic pancreatitis 235 202901 K86.1 Testicular hypofunction 291373439 E29.1 Disorder of prostate 302 00593 N42.9 [id number] Bonifacio Arellano MD [facility] Internal Med [facility] [place] [address] [address] 02/18/2024 16:25:25 02/18/2024 16:49:42 Essential hypertension 45870661 I10 Pure hypercholesterolemia 610468846 E78.00 Chronic pancreatitis 235 358577 K86.1 Obese class I 3498809744 43683 E66.9 Cellulitis of left lower limb 2983114273 3837731 L03.116 Health Concerns Section Related Observation LastModified by Organization Detai ls LastModified Time None Recorded Concern Status LastModified by Organization Details LastModified Time None Recorded Advance Directives Directive None Recorded Payers Encounter Date Sequence Insurance Name Policy Number Policy [employer] Covered Member ID Weinberg Member ID Guarantor Name 08/28/2022 1 [facility] [id number] Tyree Koenig [id number] 1 Tyree Koenig 02/26/2023 1 [facility] [id number] Tyree Koenig [id number] 1 Tyree Koenig 08/27/2023 1 [facility] [id number] Tyree Koenig [id number] 1 Tyree Koenig 02/18/2024 1 [facility] [id number] Tyree Koenig [id number] 1 Tyree Heckxiomy Notes Date Note Type Note Provider Name and Address Organization Details Recorded Time 08/28/2022 text/html Patient Name: St clarisa HeckueDate Of Service: Friday ( 08.28.2022 ): 1965 Age: 56 There has been approximately a 5 lb weight loss since 02/27/2022. This represents approximately a 2.4% change in weight. Weight change attributable to lifestyle changes. Vital Signs:Blood Pressure: Sitting Rt. Arm 122/80Pulse: Sitting 81 /min and RegularRespirations: 12Height 69 in or 1.8 mWeight 206 lb or 93.4 kgBMI 30.4Temperature: 97 F or 36.1 CPulse Oximetry: 97 % at rest on no oxygen Chief Complaint: Addressed in HPI Problems or conditions discussed in the HPI were the only ones reviewed during the encounter.Only social and family history addressed in the HPI were reviewed during this encounter. Attendant(s): None Constitutional and Systemic Symptoms: none Medication Reconciliation: by patient. History of Present Illness #1. Essential Hypertension: Stage: Stage I Interval Neurological Complaints no headaches, dizziness, weakness, visual changes, ataxia, aphasia and apraxia. No shortness of breath, orthopnea or cardiovascular symptoms. No other symptoms related to end organ damage. Pressure has been under excellent control. Currently normal. No other end organ symptoms or findings. Therapy reviewed regarding management of hypertension and includes salt restriction and Norvasc and Zestoretic. #2. Type II Hypercholesterolaemia: Currently taking medication and tolerating well. No interval complaints of any muscle pain or arthralgia. No significant liver changes with medications. Last lipid panel: excellent control. Therapy reviewed regarding treatment of cholesterol management and include diet and Crestor. #3. Chronic pancreatitis: Hx of chronic recurrent pancreatitis. Has not had any recent change in frequency, duration or intensity of any abdominal pain. Stool are normal and no change in consistency. There has been no weight loss or other signs of maldigestion or malabsorption.Medicatio n List Reviewed and Reconciled 08/28/2022Norvasc 5 MG One Daily For HtnZestoretic 12.5 MG-20 MG Two Tablets Once DailyNiaspan 500 MG (TABLET, EXTENDED RELEASE - ORAL) One Hs For CholesterolCrestor 40 MG (TABLET - ORAL) One Daily For CholesterolVitamin D One DailyVitamin B-complex One DailyMultivitamin One DailyZetia 10 MG (TABLET - ORAL) Once DailySocial HistoryDoes not smokeDoes not drinkWorks as PainterFamily HistoryMother 60 from CVA and essential hypertensionFather and hx of essential hypertension and of Alzheimer'sOne sister from cerebral neoplasm at a young age. Bonifacio Arellano MD [address] [facility], [facility], [address], [place], [address], [place] [facility] [employer] 08/28/2022 16:58:44 02/26/2023 text/html Patient Name: St clarisa HeckueDate Of Service: Friday ( 02.26.2023 ): 1965 Age: 57 There has been approximately a 5 lb weight gain since 08/28/2022. This represents approximately a 2.4% change in weight. Weight change attributable to lifestyle changes. Vital Signs:Blood Pressure: Sitting Rt. Arm 120/76Pulse: Sitting 78 /min and RegularRespiratory Rate: 12Height 69 in or 1.8 mWeight 211 lb or 95.7 kgBMI 31.2Temperature: 98.9 F or 37.2 C Chief Complaint: Addressed in HPI Problems or conditions discussed in the HPI were the only ones reviewed during the encounter.Only social and family history addressed in the HPI were reviewed during this encounter. Attendant(s): NoneConstitutional and Systemic Symptoms:none Medication Reconciliation: from medication list. History of Present Illness #1. Essential Hypertension: Stage: Stage I Interval Neurological Complaints no headaches, dizziness, weakness, visual changes, ataxia and aphasia. No shortness of breath, orthopnea or cardiovascular symptoms. No other symptoms related to end organ damage. Pressure has been under excellent control. Currently normal. No other end organ symptoms or findings. Therapy reviewed regarding management of hypertension and includes salt restriction and Norvasc and Zestoretic. #2. Type II Hypercholesterolaemia: Currently taking medication and tolerating well. No interval complaints of any muscle pain or arthralgia. No significant liver changes with medications. Last lipid panel: excellent control. Therapy reviewed regarding treatment of cholesterol management and include diet and Crestor, Zestoretic and Zetia. #3. Chronic pancreatitis: Hx of chronic recurrent pancreatitis. Has not had any recent change in frequency, duration or intensity of any abdominal pain. Stool are normal and no change in consistency. There has been no weight loss or other signs of maldigestion or malabsorption. #4. Testicular Hypofunction: Stable. Libido and energy levels are good. No significant problems with performing daily activities. Taking medication: no medication. No other systemic complaints related to hypogonadism. #5. Hx of obesity. Currently Class 1 Obesity BMI 30-34.99. Has tried numerous dietary support and supplements with no benefit. Instructed on the health consequences of the obese status particularly cancer - diabetes and heart disease. Discussed new modalities of weight loss including GLP-1 medications that are used to treat diabetes. Potential candidate for bariatric surgery: No. Wishes to be evaluated by Dietary: No and was offered to be evaluated and instructed by shoe repairer helper on weight loss diet.Medication List Reviewed and Reconciled 02/26/2023Norvasc 5 MG One Daily For HtnZestoretic 12.5 MG-20 MG Two Tablets Once DailyNiaspan 500 MG (TABLET, EXTENDED RELEASE - ORAL) One Hs For CholesterolCrestor 40 MG (TABLET - ORAL) One Daily For CholesterolVitamin D One DailyVitamin B-complex One DailyMultivitamin One DailyZetia 10 MG (TABLET - ORAL) Once DailySocial HistoryDoes not smokeDoes not drinkWorks as PainterFamily HistoryMother 60 from CVA and essential hypertensionFather and hx of essential hypertension and of Alzheimer'sOne sister from cerebral neoplasm at a young age. TEST RESULT RANGE UNITSLIPID PANEL, STANDARD Date: 3CHOLESTEROL, TOTAL 130 <200 MG/DLHDL CHOLESTEROL 49 > OR = 40 MG/DLTRIGLYCERIDES 146 <150 MG/DLLDL-CHOLESTEROL 58 MG/DL (CALC)COMPREHENSIVE METABOLIC PANEL Date: 09/04/2022SODIUM 138 135-146 MMOL/LPOTASSIUM 4.1 3.5-5.3 MMOL/LGLUCOSE 99 65-99 MG/DLUREA NITROGEN (BUN) 14 7-25 MG/DLCREATININE 0.81 0.70-1.30 MG/DLEGFR 103 > OR = 60 ML/MIN/[id number], TOTAL 0.6 0.2-1.2 MG/DLALKALINE PHOSPHATASE 58 35-144 U/LAST 24 10-35 U/LALT 28 9-46 U/LPSA, TOTAL Date: 09/04/2022SA, TOTAL 1.11 < OR = 4.00 NG/MLCBC (INCLUDES DIFF/PLT) Date: 09/04/2022WHITE BLOOD CELL COUNT 6.5 3.8-10.8 THOUSAND/ULHEMOGLOBIN 15.3 13.2-17.1 G/DLHEMATOCRIT 46.2 38.5-50.0 %PLATELET COUNT 231 140-400 THOUSAND/UL Bonifacio Arellano MD [address] [facility], [facility], [address], [place], [address], [facility] [employer] 02/26/2023 16:55:38 08/27/2023 text/html Patient Name: St clarisa HeckueDate Of Service: Friday ( 08.27.2023 ): 1965 Age: 57 There has been approximately a 5 lb weight loss since 02/26/2023. This represents approximately a 2.4% change in weight. Weight change attributable to lifestyle changes. Vital Signs:Blood Pressure: Sitting Rt. Arm 126/72Pulse: Sitting 80 /min and RegularRespiratory Rate: 12Height 69 in or 1.8 mWeight 206 lb or 93.4 kgBMI 30.4Temperature: 98.1 F or 36.7 CPulse Oximetry: 97 % at rest on no oxygen Chief Complaint: Addressed in HPI Problems or conditions discussed in the HPI were the only ones reviewed during the encounter.Only social and family history addressed in the HPI were reviewed during this encounter. Attendant(s): NoneConstitutional and Systemic Symptoms:none Medication Reconciliation: from medication list. History of Present Illness #1. Essential Hypertension: Stage: Stage I Interval Neurological Complaints no headaches, dizziness, weakness, visual changes, ataxia, aphasia and apraxia. No shortness of breath, orthopnea or cardiovascular symptoms. No other symptoms related to end organ damage. Pressure has been under excellent control. Currently normal. No other end organ symptoms or findings. Therapy reviewed regarding management of hypertension and includes salt restriction and Norvasc and Zestoretic. #2. Type II Hypercholesterolaemia: Currently taking medication and tolerating well. No interval complaints of any muscle pain or arthralgia. No significant liver changes with medications. Last lipid panel: fair control. Therapy reviewed regarding treatment of cholesterol management and include diet and Crestor and Zetia. #3. Chronic pancreatitis: Hx of chronic recurrent pancreatitis. Has not had any recent change in frequency, duration or intensity of any abdominal pain. Stool are normal and no change in consistency. There has been no weight loss or other signs of maldigestion or malabsorption. #4. Testicular Hypofunction: Stable. Libido and energy levels are good. No significant problems with performing daily activities. Taking medication: no medication. No other systemic complaints related to hypogonadism. 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 TEST RESULT RANGE UNITSLIPID PANEL, STANDARD Date: 4CHOLESTEROL, TOTAL 146 <200 MG/DLHDL CHOLESTEROL 51 > OR = 40 MG/DLTRIGLYCERIDES 141 <150 MG/DLLDL-CHOLESTEROL 73 MG/DL (CALC) Bonifacio Arellano MD [address] [facility] [address], [place], [address], [facility] [employer] 08/27/2023 16:57:35 02/18/2024 text/html Patient Name: St clarisa HeckueDate Of Service: Friday ( 02.18.2024 ): 1965 Age: 58 There has been approximately a 2 lb weight loss since 08/27/2023. This represents approximately a 1.0% change in weight. Weight change attributable to lifestyle changes. Vital Signs:Blood Pressure: Sitting Rt. Arm 122/80Pulse: Sitting 82 /min and RegularRespiratory Rate: 16Height 69 in or 1.8 mWeight 204 lb or 92.5 kgBMI 30.1Temperature: 97 F or 36.1 CPulse Oximetry: 98 % at rest on no oxygen Chief Complaint: Addressed in HPI Problems or conditions discussed in the HPI were the only ones reviewed during the encounter.Only social and family history addressed in the HPI were reviewed during this encounter. Attendant(s): NoneConstitutional and Systemic Symptoms:none Medication Reconciliation: from medication list. History of Present Illness #1. Essential Hypertension: Stage: Stage I Interval Neurological Complaints no headaches, dizziness, weakness, visual changes, ataxia, aphasia and apraxia. No shortness of breath, orthopnea or cardiovascular symptoms. No other symptoms related to end organ damage. Pressure has been under excellent control. Currently normal. No other end organ symptoms or findings. Therapy reviewed regarding management of hypertension and includes salt restriction and Norvasc and Zestoretic. #2. Type II Hypercholesterolaemia: Currently taking medication and tolerating well. No interval complaints of any muscle pain or arthralgia. No significant liver changes with medications. Last lipid panel: fair control. Therapy reviewed regarding treatment of cholesterol management and include diet and Crestor and Zetia. #3. History of chronic and recurrent pancreatitis. He has been symptom-free for a number of months with no abdominal discomfort whatsoever. Denies any history of any nausea, vomiting, change in bowel habits or any other systemic or gastrointestinal symptomatology.: #4. Hx of obesity. Currently Class 1 Obesity BMI 30-34.99. Has tried numerous dietary support and supplements with no benefit. Instructed on the health consequences of the obese status particularly cancer - diabetes and heart disease. Discussed other modalities of weight loss no . Potential candidate for bariatric surgery: No. Wishes to be evaluated by Dietary: No and was offered to be evaluated and instructed by shoe repairer helper on weight loss diet. 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 TEST RESULT RANGE UNITSCOMPREHENSIVE METABOLIC PANEL Date: 08/30/2023SODIUM 138 135-146 MMOL/LPOTASSIUM 3.6 3.5-5.3 MMOL/LGLUCOSE 115 65-99 MG/DLUREA NITROGEN (BUN) 17 7-25 MG/DLCREATININE 0.74 0.70-1.30 MG/DLEGFR 105 > OR = 60 ML/MIN/[id number], TOTAL 0.4 0.2-1.2 MG/DLALKALINE PHOSPHATASE 60 35-144 U/LAST 20 10-35 U/LALT 22 9-46 U/LLIPID PANEL, STANDARD Date: 4CHOLESTEROL, TOTAL 122 <200 MG/DLHDL CHOLESTEROL 56 > OR = 40 MG/DLTRIGLYCERIDES 62 <150 MG/DLLDL-CHOLESTEROL 52 MG/DL (CALC)PSA, TOTAL Date: 4PSA, TOTAL 1.05 < OR = 4.00 NG/MLTESTOSTERONE, FREE (DIALYSIS) AND TOTAL,MS Date: 08/30/2023TESTOSTERONE, TOTAL, MS [phone] NG/DLTESTOSTERONE, FREE 66.1 35.0-155.0 PG/ML Bonifacio Arellano MD [address] [facility], [facility], [place], [address], [place] [facility] 02/18/2024 16:44:59
--- OUTSIDE RECORDS SUMMARY | 2024-07-03 12:49 | XMS_ITS | Encounter Summary ---
Author Organization [facility] Address [address] [place] [address] Care Team Providers Care Carding Utility Tender Name Role Phone Unavailable Primary Care Provider Unavailabl e Encounter Details Date Type Department Care Team (Late st Contact Info) Description 02/05/2019 Lab Requisition [facility] DermPath Lab [address] [place] [address] Abel Dao MD [address] [place], [place] [id number] Social History Tobacco Use Types Packs/Day Years Used Date Smoking Tobacco: Never Assessed Sex and Gender Information Value Date Recorded Sex Assigned at Not on file 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 Gender Identity Not on file Sexual Orientation Not on file documented as of this encounter Plan of Treatment Not on file documented as of this encounter Procedures Procedure Name Priority Date/Time Associated Diagnosis Comments DERMATOPATHOLOGY Routine 02/03/2019 12:0 0 AM MOTORCYCLE REPAIRER documented in this encounter Results * DERMATOPATHOLOGY (02/03/2019 12:00 AM MOTORCYCLE REPAIRER) Case Report Dermatopathology Report Case: [id number] Authorizing Provider: Abel Dao MD Collected: 02/03/2019 12:00 AM Ordering Location: [facility] Derm[facility] Lab Received: 02/05/2019 10:36 AM Pathologist: Rosmery Faulkner MD Specimen: Skin, left lower leg 9 9:02 AM MOTORCYCLE REPAIRER DERMATOPATHOLOGY LABORATORY Final Diagnosis Specimen A. 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 9:02 AM [facility] DERMATOPATHOLOGY LABORATORY Gross Description Specimen A: Received is one formalin filled container labeled with the patient's name and designated left lower leg. The specimen consists of a punch biopsy measuring [id number], bisected. Jar 0. 9:02 AM [facility] DERMATOPATHOLOGY LABORATORY Microscopic Description Specimen A. SKIN, left lower leg: There is focal parakeratosis and mild spongiosis of the epidermis. In the dermis there is a mainly superficial perivascular lymphoid infiltrate with extravasated erythrocytes in the papillary dermis. Grocott's methenamine silver (GMS) stain fails to highlight fungal elements in the available sections. COMMENT: The presence of extravasated erythrocytes in the papillary dermis is compatible with a pigmented purpuric dermatosis. Spongiosis may be seen in the setting of a pigmented purpuric dermatosis but also raises consideration of an eczematous dermatitis. Clinical correlation is recommended. 9:02 AM [facility] DERMATOPATHOLOGY LABORATORY Disclaimer An external and internal positive and negative controls are appropriate for the histochemical, immunohistochemical and immunofluorescence stain(s) in this case (if any), except where stated explicitly. The performance characteristics of the stain(s) cited in this report were developed and its performance characteristic determined by the Dermatopathology Laboratory at [facility], directed by Dr. Francisco Mitchell. These tests need not be, and therefore are not, approved by the [place] Food and Drug Administration. The tests are used for clinical purposes. Billing Codes Specimen Charges Stain Charges 21796 1 77896 1 9:02 AM [facility] DERMATOPATHOLOGY LABORATORY Embedded Images 9:02 AM [facility] DERMATOPATHOLOGY LABORATORY Pathology/Cytolog y TISSUE SPECIMEN FROM SKIN / Unknown 02/03/2019 02/05/2019 10:36 AM [facility] us Abel Dao MD LAB - PATHOLOGY/CYTOLOGY ORD ERABLES Final Result DERMATOPATHOLOGY LABORATORY [facility] - Department of Dermatology [facility], 5th Floor Lab [address] [phone] documented in this encounter Visit Diagnoses Not on filedocumented in this encounter
--- OUTSIDE RECORDS SUMMARY | 2024-07-03 12:50 | XMS_ITS | Clinical Summary ---
Author Organization [facility] Address [address] [place] [address] Care Team Providers Care Associate Financial Planner Name Role Phone Unavailable Primary Care Provider Unavailabl e Source Comments [facility],non-owned Affiliates and Associated Physician Practices is amultiple site organization consisting of ambulatory clinics and hospital sitesin [place], [place], [place] and [place]. This disclosure is being madepursuant to the Care Everywhere program and may not contain all information available regarding this patient. Last updated 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 Gender Identity Not on file Sexual Orientation Not on file Plan of Treatment Health Maintenance Due Date Last Done Comments COLOGUARD (AGES 45-75) - COL ON CA SCREENING 1965 COLON MONITORING 1964 COLONOSCOPY - COLON CA SCREENING 1964 CT COLONOGRAPHY - COLON CA SCREENING 1965 Colorectal Cancer Screening 1965 FIT - COLON CA SCREENING 1965 FLEX SIG - COLON CA SCREENING 1965 LIPID TESTING 1965 HIV SCREENING 09/18/1979 HEPATITIS C SCREENING 09/13/1982 DTAP/TDAP/TD VACCINES (1 - Tdap) 09/18/1983 HEPATITIS B VACCINE (1 of 3 - 19+ 3-dose series) 09/18/1983 PNEUMOCOCCAL VACCINE 50+ (1 of 1 - PCV) 2014 ZOSTER VACCINE (1 of 2) 2014 COVID-19 VACCINE ( - 2023-2 5 season) 2023 DEPRESSION SCREENING 03/03/2024 INFLUENZA VACCINE (Season Ended) 2024 HIB VACCINE Aged Out No longer eligi ble based on patient's age to complete this topic HPV VACCINE Aged Out No longer eligi ble based on patient's age to complete this topic MENINGOCOCCAL (Group B) VACC INE SHARED DECISION-MAKING Aged Out No longer eligibl e based on patient's age to complete this topic MENINGOCOCCAL GROUPS A/C/Y/W VACCINE Aged Out No longer eligible b ased on patient's age to complete this topic Insurance * Guarantor: KAVON KOENIG Account Type Relation to Patient Date of Phone Billing Address Personal/Family 1965 [facility] [place], [place] [id number] [place] [address]
--- OUTSIDE RECORDS SUMMARY | 2024-07-03 12:50 | XMS_ITS | Continuity of Care Document ---
Author Organization [facility] Address [address] [place] [address] [address] [place] [address] Phone Care Team Providers Care Cornice Upholsterer Name Role Phone Philippe OD, [place] Unavailable Unavailable Procedures Procedure Date Eye Exam & Treatment Advance Directives Directive Yes / No Effective Date File Name No Information Encounters Encounter Description Practice Location Reason(s) For Visit Diagnoses Date Provider Providers Copied on Encounter [facility], [address] [place] [address] [address], [place], [place], [id number], [place] tel:[phone] SEC [facility] [place] No Information 8-200 7 Philippe OD [place]. [address] [facility] , [address], [place], [address], [place]. tel:[phone] Family History Family Member Type Diagnosis Age At Onset No Information Payers Payer name Insurance type Covered democrat ID Authoriza tion(s) No Information Social History Type Description Quantity Date Captured Comments Sex Male Smoking Status No Information Chief Complaint And Reason For Visit No Information Reason For Referral Reason For Referral No Information History Of Present Illness Encounter Date Complaint History Of Prese nt Illness No Information Functional Status Date Functional Assessmen t No Information Instructions Date Instruction Additional Infor mation No Information Assessments Type Assessment Date No Information Patient Care Teams Name Effective Dates (start - stop) Status Members No Information
--- OUTSIDE RECORDS SUMMARY | 2024-07-03 12:50 | XMS_ITS | CONTINUITY OF CARE DOCUMENT ---
Author Name courtney valdez Address Unknown Organization [facility] Address [address] [place] [address] [address] [place] [address] Phone [phone] Care Team Providers Care Contestant Coordinator Name Role Phone courtney valdez Unavailable Unavailable
--- OUTSIDE RECORDS SUMMARY | 2024-07-03 12:50 | XMS_ITS ---
Author Organization [facility] Address [address] [place], [place] [id number] Care Team Providers Care Case Loader Operator Name Role Phone DARREN ANTONIO Unavailable [phone] Bonifacio Arellano Unavailable Unavailable Allergies Allergen (clinical drug ingredient) Drug/Non Drug Allergy documented on EMR Reaction Allergy Type Onset Date Status POISON MONTEZ EXTRACT poison montez extract (uncoded) Unknown Allergy 04/15/2022 active REASON FOR VISIT Patient presents with multiple foot issues. His main concern is pain along the instep that radiatesup toward the front of his ankle. It eugene when he pulls his foot up (Dorsiflexion). No accident orinjury reported. Michelle helps it., He also has a fungal toenail that has not responded to nail drops Medications Medication SIG (Take, Route, Frequency, Duration) Notes Start Date End Date Status Ezetimibe 10 MG 1 tablet Orally Once a day Active Crestor 40 MG 1 tablet Orally Once a day Active Niacin 500 MG 1 tablet with food Orally Once a day Active amLODIPine Benzoate 1 MG/ML 5 mL Orally Once a day Active Lisinopril 20 MG 1 tablet Orally Once a day Active methylPREDNISolone 4 MG as directed Orally one pack 024 Active Ciclopirox 8 % 1 application Externally to toenails Once a day. for 30 days Remove medication weekly with rubbing alcohol. one bottle, 6.6mL or similar. 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 All questions were answered. 12/01/2023 Tinea unguium (ICD-10 - B35.1) FUNGAL TOENAILS: Discussed various treatment options for fungal toenails including debridement, topical antifungals, oral antifungals, toenail avulsion, or toenail matrixectomy. We will try a different topical antifungal 12/01/2023 Other congenital malformations of lower limb(s), including pelvic girdle (ICD-10 - Q74.2) 12/01/2023 Left foot pain (ICD-10 - M79.672) Plan Of Treatment Medication Medication Name Sig Start Date Stop Date Notes methylPREDNISolone 4 MG as directed Orally 12/01/2023 one pack Ciclopirox 8 % 1 application Externally to toenails Once a day. for 30 days 12/01/2023 05/29/2024 one bottle, 6.6mL or similar. Treatment Notes Assessment Notes Anterior tibial syndrome, [...] use and effect. All questions were answered. Tinea unguium FUNGAL TOENAILS: Discussed various treatment options for fungal toenails including debridement, topical antifungals, oral antifungals, toenail avulsion, or toenail matrixectomy. We will try a different topical antifungal Next Appt Details Follow Up: 2 Weeks, Reason: See how oral steroid and PowerSteps helped pain. Too soon to see if topical antifungal helps Progress Notes * KAVON DAMONDOB:1965 (58 yo M)Acc No.[id number]:12/01/2023 Patient: KAVON HAM Provider: Uri Antonio DPM :1965 A ge:58 Y S ex:Male Date:12/01/2023 Address:[address] [place] [address] Subjective: * Chief Complaints: * 1 . Patient presents with multiple foot issues. His main concern is pain along the instep that radiates up toward the front of his ankle. It eugene when he pulls his foot up (Dorsiflexion). No accident or injury reported. Aleve helps it.. 2. He also has a fungal toenail that has not responded to nail drops. * HPI: H PI: New Complaint E stablished patient presents with a new complaint., Patient complains of an issue to left foot pain. Patient states 1 year ago this started. Patient states it started as a cramp and once he would stand up it would pop and the pain would go away, but now the pain is not going away. Pain located from great toe up to ankle. Patient states pain comes and goes. Patient has not had any recent X-rays. Patient denies any injury. MA: LB. * ROS: G eneral / [...] enies Past Hospitalization. * Family History: N o Family History documented.. * Social History: M igrated Social History: M igrated Social History: History of tobacco use : , Smoking Status : Never used tobacco. * Medications: T aking Niacin 500 MG Tablet 1 tablet with food Orally Once a day , Taking Crestor 40 MG Tablet 1 tablet Orally Once a day , Taking Ezetimibe 10 MG Tablet 1 tablet Orally Once a day , Taking Lisinopril 20 MG Tablet 1 tablet Orally Once a day , Taking amLODIPine Benzoate 1 MG/ML Suspension 5 mL Orally Once a day , Medication List reviewed and reconciled with the patient * Allergies: p zak montez extract: Allergy - Onset Date 04/15/2022. Objective: [...] in bilateral lower extremities. Pain on palpation p ain to the dorsal aspect of the medial cunieform and 1st metatarsal base. No palpation tenderness to the navicular or its tuberosity. There is tenderness with dorsiflexion against resistance; no pain with plantar flexion. ? R adiographs: Left Foot No evidence of fracture, dislocation, or other osseous lesions. 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 ? Assessment: * Assessment: 1. A nterior tibial syndrome, left leg - M76.812 (Primary) 2 . T inea unguium - B35.1 3 . 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 L eft foot pain - M79.672 Plan: * Treatment: 2. T inea unguium Notes: FUNGAL TOENAILS: Discussed various treatment options for fungal toenails including debridement, topical antifungals, oral antifungals, toenail avulsion, or toenail matrixectomy. We will try a different topical antifungal * Immunizations: Influenza, high dose seasonal (Not administered - Refused: Patient decision) Pneumococcal conjugate PCV 13 (Not administered - Refused: Patient decision) ???Immunization record has been reviewed and updated. * Procedure Codes: 7 3630 X-RAY EXAM OF FOOT, Modifiers: LT * Follow Up: 2 Weeks (Reason: See how oral steroid and PowerSteps helped pain. Too soon to see if topical antifungal helps) * Billing Information: * Visit Code: 53811 Office Visit, Est Pt., Level 3. * Procedure Codes: 76058 X-RAY EXAM OF FOOT. Modifiers: LT * Sign off status: Completed true * Provider: Uri Antonio DPM Date: 0 12/01/2023 Generated for Ronaldo almeida/Kodi/Alcidesitting on: 0 07/03/2024 12:50 PM CDT History and Physical Notes * HPI (History of Present Illness) Category Sub-Category Detail Notes Category Not es HPI New Complaint Established flori ent presents with a new complaint., Patient complains of an issue to left foot pain. Patient states 1 year ago this started. Patient states it started as a cramp and once he would stand up it would pop and the pain would go away, but now the pain is not going away. Pain located from great toe up to ankle. Patient states pain comes and goes. Patient has not had any recent X-rays. Patient denies any injury. MA: LB Examination Category Sub-Category Detail Notes Category Not es Dermatologic Skin findings: Skin is warm, dr mckoy, supple with no breaks in the skin [...] in bilateral lower extremities Pain on palpation pain to the dorsal a spect of the medial cunieform and 1st metatarsal base. No palpation tenderness to the navicular or its tuberosity. There is tenderness with dorsiflexion against resistance; no pain with plantar flexion Constitutional Constitutional The patient is a wake, alert, well developed, well groomed and well nourished Radiographs Left Foot No evidence of f racture, dislocation, or other osseous lesions. 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
== END 2024-07-02 11:30 | disposition home or self-care (01) ==
PROVIDERS: PCP Internal Medicine; Visit Provider Internal Medicine
DX: M25.511 Pain in right shoulder (principal)
CPT/HCPCS: 73030